=== PATIENT | male | born 1995 | race Caucasian/White ===

== ENCOUNTER 2024-07-30 17:18 | Emergency (ER) | payer OTHER, SELFPAY ==
[2024-07-30 17:32] VITALS: BP 138/79; PULSE 77; RESP 16; TEMP 36.6; O2SAT 100
[2024-07-30] MEDS: TETANUS,DIPHTHERIA,AC PERTUSSIS ADULT (0.5 ML) BOOSTRIX IM (18:24)
--- NOTE | 2024-07-30 18:25 | ED.GENADULT ---
HPI - General Adult General Chief complaint: Wound/Laceration Stated complaint: WC - Lac on head Source: patient Mode of arrival: ambulatory Limitations: no limitations History of Present Illness HPI narrative: Patient presents for evaluation of a laceration to the scalp that occurred just prior to arrival. He indicates he walked to the antenna aircraft which caused a laceration. He had no loss of consciousness. He is not on blood thinners. No vomiting since the episode. Reports a small amount bleeding from the affected area. He denies significant pain. Date of last tetanus unknown. Related Data Home Medications Medication Instructions Recorded Confirmed bupropion HCl 300 mg 24 hr tablet, 300 mg PO 07/30/24 extended release lisdexamfetamine 50 mg capsule 50 mg PO 07/30/24 (Vyvanse) Allergies Allergy/AdvReac Type Severity Reaction Status Date / Time amoxicillin Allergy Unknown Verified 07/30/24 17:33 Review of Systems Review of Systems: CONSTITUTIONAL: Denies fever, chills, or sweats. EYES: Denies visual changes, redness, or discharge. ENT: Denies rhinorrhea, congestion, sore throat, or otalgia. CARDIOVASCULAR: Denies chest pain, palpitations, or edema. RESPIRATORY: Denies cough or dyspnea. GASTROINTESTINAL: Denies abdominal pain, nausea, vomiting, or diarrhea. GENITOURINARY: Denies dysuria or hematuria. SKIN: Reports scalp laceration MUSCULOSKELETAL: Denies back pain, joint pain, or myalgia. NEUROLOGIC: Denies headache, numbness, dizziness, or weakness. PSYCHIATRIC: Denies anxiety or depression. PMFSH Past Medical History Medical History ADD (attention deficit disorder) Anxiety Surgical History Surgical History No pertinent past surgical history Family History Family History Mother Family history non-contributory Social History Social History Gender identity (if verbalized by the patient): Male Spiritual care concerns: No Exam Narrative: GENERAL: Well-appearing, well-nourished, and in no acute distress. HEAD: There is a 2 cm linear laceration to the left parietal region of the scalp with a small amount of sanguinous drainage EYES: PERRLA and EOMI. ENT: Nares clear, no rhinorrhea or epistaxis. Mucous membranes moist. Oropharynx without tonsillar hypertrophy exudate or other lesions. Bilateral TMs pearly grover nonbulging NECK: Supple. No adenopathy or masses. No carotid bruits or JVD CHEST: Clear to auscultation. No respiratory distress. No wheezes rales or rhonchi HEART: Regular rate and rhythm. No murmur heard. Normal peripheral pulses. ABDOMEN: Soft, nontender, nondistended, normal active bowel sounds. EXTREMITIES: Normal range of motion. No edema. SKIN: Warm, dry, no rash. NEURO: No focal deficits. Alert and oriented x3. PSYCH: Normal mood and affect. Course Course Emergency Course: This is a 29-year-old male who presented for evaluation of a laceration to left side of his scalp. Wound was closed with 3 garrison. Patient tolerated well. Updated on tetanus. Advised on wound care. Advise he follow up in 7-10 days for staple removal. Here go to the emergency department for signs of infection. OTC agents for symptom management. Pt in agreement with plan of care. Level of Care: Express Care Visit Vital Signs Vital signs: Vital Signs Temperature 36.6 C 07/30/24 17:32 Pulse Rate 77 07/30/24 17:32 Respiratory Rate 16 07/30/24 17:32 Blood Pressure 138/79 07/30/24 17:32 Pulse Oximetry 100 07/30/24 17:32 Oxygen Delivery Room Air 07/30/24 17:32 Temperature 36.6 C 07/30/24 17:32 Pulse Rate 77 07/30/24 17:32 Respiratory Rate 16 07/30/24 17:32 Blood Pressure 138/79 07/30/24 17:32 Pulse Oximetry 100 07/30/24 17:32 Oxygen Delivery Room Air 07/30/24 17:32 Procedures Laceration Laceration 1: Date: 07/30/24 Time: 18:29 Site: scalp Side (If applicable): left Size (cm): 2 Description: linear ====== Skin Level ====== Skin layer closed with: garrison (3 garrison) ====== Subcutaneous Layer ====== ====== Muscle Layer ====== ====== Tendon Layer ====== Medical Decision Making Vital Signs Vital Signs: Vital Signs Temperature 36.6 C 07/30/24 17:32 Pulse Rate 77 07/30/24 17:32 Respiratory Rate 16 07/30/24 17:32 Blood Pressure 138/79 07/30/24 17:32 Pulse Oximetry 100 07/30/24 17:32 Oxygen Delivery Room Air 07/30/24 17:32 Temperature 36.6 C 07/30/24 17:32 Pulse Rate 77 07/30/24 17:32 Respiratory Rate 16 07/30/24 17:32 Blood Pressure 138/79 07/30/24 17:32 Pulse Oximetry 100 07/30/24 17:32 Oxygen Delivery Room Air 07/30/24 17:32 Discharge Plan Discharge Clinical Impression: Laceration of scalp Patient Disposition: Home, Self-Care Condition: Stable Instructions: Antibiotic Form, Laceration (ED), Staple Care (ED) Patient Language: Hungarian Prescriptions: No Action bupropion HCl 300 mg tablet extended release 24 hr 300 mg PO lisdexamfetamine [Vyvanse] 50 mg capsule 50 mg PO Follow-up/Referrals: Eduardo,MD Aamir [Primary Care Provider] - Time of Disposition: 18:25
== END 2024-07-30 18:37 | disposition home or self-care (01) ==
PROVIDERS: Emergency Provider Nurse Practitioner; PCP Hospitalist
DX: S01.01XA Laceration without foreign body of scalp, initial encounter (principal); W22.8XXA Striking against or struck by other objects, initial encounter; Z23 Encounter for immunization; F90.9 Attention-deficit hyperactivity disorder, unspecified type; F41.9 Anxiety disorder, unspecified
CPT/HCPCS: 12001; 90471; 90715; 99212; G0463

== ENCOUNTER 2024-08-12 18:09 | Emergency (ER) | payer BC, SELFPAY ==
[2024-08-12 18:16] VITALS: BP 142/72; PULSE 78; RESP 18; TEMP 36.7; O2SAT 100
--- NOTE | 2024-08-12 18:23 | ED_ITS ---
HPI - General Adult General Stated complaint: Cordell Remover Time Seen by Provider: 08/12/24 18:24 Source: patient Mode of arrival: ambulatory Limitations: no limitations History of Present Illness HPI narrative: 29 y/o male presented for staple removal. Has [address] to left parietal scalp, placed 11 days ago per pt. (Per notes pt was seen 07/30 for scalp lac). Denies complications or other concerns. Related Data Home Medications ?Medication ?Instructions ?Recorded ?Confirmed ?Last Taken ?Type bupropion HCl 300 mg 24 hr tablet, 300 mg PO 07/30/24 Unknown History extended release lisdexamfetamine 50 mg capsule 50 mg PO 07/30/24 Unknown History (Vyvanse) Allergies Allergy/AdvReac Type Severity Reaction Status Date / Time amoxicillin Allergy Unknown Verified 07/30/24 17:33 Review of Systems Review of Systems: CONSTITUTIONAL: Denies body aches, fever, chills, or sweats. ENT: Denies rhinorrhea, congestion CARDIOVASCULAR: Denies chest pain, palpitations, or edema. RESPIRATORY: Denies cough or dyspnea. GASTROINTESTINAL: Denies abdominal pain, nausea, vomiting, or diarrhea. SKIN: reports cordell NEUROLOGIC: Denies headache PMFSH Past Medical History Medical History ADD (attention deficit disorder) Anxiety Surgical History Surgical History No pertinent past surgical history Family History Family History Mother Family history non-contributory Social History Social History Gender identity (if verbalized by the patient): Male Spiritual care concerns: No Comments At time of signature, I have reviewed and agree with nursing past medical, analilia gical, social and family history unless otherwise noted. Please see nursing chart for further information. There is no relevant family history pertinent to the presenting complaint Exam Narrative: GENERAL: Well-appearing EYES: conjunctivae clear, and EOMI. ENT: Mucous membranes moist. Oropharynx without edema, erythema or lesions. NECK: Supple. No lymphadenopathy CHEST: Clear to auscultation. HEART: Regular rate and rhythm. SKIN: Warm, dry. [address] to left parietal scalp[address] NEURO: Alert and oriented x3. Course Course Emergency Course: Patient is aware of diagnosis, understands and agrees to treatment plan. Anticipatory guidance given. Patient agrees to follow-up as directed and is aware of reasons to seek care at the emergency department. Portions of this record may have been created with voice recognition software Level of Care: Express Care Visit Vital Signs Vital signs: Vital Signs Temperature 98.0 F 08/12/24 18:16 Pulse Rate 78 08/12/24 18:16 Respiratory Rate 18 08/12/24 18:16 Blood Pressure 142/72 H 08/12/24 18:16 Pulse Oximetry 100 08/12/24 18:16 Oxygen Delivery Room Air 08/12/24 18:16 Temperature 98.0 F 08/12/24 18:16 Pulse Rate 78 08/12/24 18:16 Respiratory Rate 18 08/12/24 18:16 Blood Pressure 142/72 H 08/12/24 18:16 Pulse Oximetry 100 08/12/24 18:16 Oxygen Delivery Room Air 08/12/24 18:16 Reviewed Procedures Other Procedure Procedure 1: Other Procedure: 3 cordell removed from scalp using staple removal tool. Medical Decision Making MDM Narrative Medical decision making narrative: Discussed physical exam findings, cordell removed without difficulty. Advised supportive measures and signs/symptoms to go to the ER. Pt is appropriate for outpt treatment and f/u. Differential Diagnosis Differential Diagnosis: staple removal Vital Signs Vital Signs: Vital Signs Temperature 98.0 F 08/12/24 18:16 Pulse Rate 78 08/12/24 18:16 Respiratory Rate 18 08/12/24 18:16 Blood Pressure 142/72 H 08/12/24 18:16 Pulse Oximetry 100 08/12/24 18:16 Oxygen Delivery Room Air 08/12/24 18:16 Temperature 98.0 F 08/12/24 18:16 Pulse Rate 78 08/12/24 18:16 Respiratory Rate 18 08/12/24 18:16 Blood Pressure 142/72 H 08/12/24 18:16 Pulse Oximetry 100 08/12/24 18:16 Oxygen Delivery Room Air 08/12/24 18:16 Discharge Plan Discharge Clinical Impression: Encounter for removal of cordell Patient Disposition: Home, Self-Care Condition: Stable Instructions: Antibiotic Form, Head Laceration (ED) Additional Instructions: Keep the area clean and dry - cleanse with warm water and mild soap and allow to fully dry. Ok to apply neosporin to the site Watch for worsening symptoms including pain, redness, swelling, streaking, pus/drainage, fever. Go to the ER with any of these symptoms or concerns. Follow up with primary care provider as needed. Patient Language: Citizen Of [place] Prescriptions: No Action bupropion HCl 300 mg tablet extended release 24 hr 300 mg PO lisdexamfetamine [Vyvanse] 50 mg capsule 50 mg PO Follow-up/Referrals: Sedrick,MD Aamir [Primary Care Provider] - Time of Disposition: 18:28
== END 2024-08-12 18:35 | disposition home or self-care (01) ==
PROVIDERS: Emergency Provider Nurse Practitioner Family; PCP Hospitalist
DX: S01.01XD Laceration without foreign body of scalp, subsequent encounter (principal); X58.XXXD Exposure to other specified factors, subsequent encounter
CPT/HCPCS: 99211; G0463